=== PATIENT | female | born 1965 | race Caucasian/White ===

== ENCOUNTER → 2020-04-13 | Outpatient (CLI) | payer OTHER ==
--- NOTE | 2020-04-13 16:37 | RAD ---
EXAM: Chest ultrasound. HISTORY: Palpable mass right chest wall. COMPARISON: None. FINDINGS: Sonographic evaluation of the site of palpable concern was performed. This reveals a fat ec hogenicity mass within the subcutaneous compartment along the right upper anterior chest. It measures 2.1 x 3.9 x 1.0 cm. It appears circumscribed and there is no involvement of deeper compartments. Superior to the region of concern, a reniform nodule deep to the pectoralis muscle measures 9 x 5 mm and suggests a benign supraclavicular lymph node. IMPRESSION: 1. Findings consistent with a 3.9 x 2.1 cm subcutaneous lipoma at the site of concern. Recommend ongo ing clinical follow-up of palpable foci to ensure stability. If this is not clinically consistent wit h a lipoma, MRI with and without contrast could further evaluate. 2. A 9 x 5 mm supraclavicular lymph node without thin cortex and prominent fatty hilus is most likely benign, but correlate with other clinical data. Electronically signed by: Namrata Foote MD (04/13/2020 4:34 PM) [id number]
--- NOTE | 2020-04-13 17:46 | RAD ---
DATE: 04/13/2020 2:26 PM EXAM: MAMMO DEBORAH DIAG BILAT HISTORY: Patient is due for screening but has a chest wall mass. COMPARISON: Right chest wall ultrasound same day Bilateral CC and MLO views of the breasts were performed. Bilateral breast tomosynthesis was performed in CC and MLO projections. Implant displaced views were also obtained This study was interpreted with the benefit of Computerized Aided Detection (CAD). FINDINGS: Breast Density: SCATTERED The breast parenchyma shows scattered fibroglandular densities. Breast parenchyma level B The chest wall mass of clinical concern is beyond the field of view within the breast and is evaluated separately by ultrasound on the same day visit. Please see that report for additional details. Bilateral subpectoral implants are present. No suspicious masses, microcalcifications or architectural distortion is present to suggest malignancy in either breast. The visualized axillae are unremarkable. IMPRESSION: No mammographic evidence of malignancy. BI-RADS CATEGORY: 1 NEGATIVE RECOMMENDED FOLLOW-UP: 12M 12 MONTH FOLLOW-UP Annual screening mammography is recommended, unless clinically indicated sooner based on symptoms or change in physical exam. PQRS compliance statement: Patient information was entered into a reminder system with a target due date for the next mammogram. Mammography is a sensitive method for finding small breast cancers, but it does not detect them all and is not a substitute for careful clinical examination. A negative mammogram does not negate a clinically suspicious finding and should not result in delay in biopsying a clinically suspicious abnormality. "Our facility is accredited by the [employer] Mammography Program."
== END ==
LOC: MAMMO 13:07
PROVIDERS: ATTEND Obstetrics & Gynecology
DX: Z01.419 Encounter for gynecological examination (general) (routine) without abnormal findings (principal); N63.10 Unspecified lump in the right breast, unspecified quadrant
CPT/HCPCS: 76604; 77066; G0279; 77062

== ENCOUNTER → 2020-06-18 | Outpatient (CLI) | payer OTHER ==
[2020-06-18 18:05] LABS: BASO # 0.1 x10^3/uL (0.0-0.2); BASO % 1 % (0-3); EOS # 0.1 x10^3/uL (0.0-0.7); EOS % 1 % (0-3); HEMATOCRIT 29.3 % (36.0-47.0); HEMOGLOBIN 9.5 g/dL (12.0-15.5); LYMPH # 1.8 x10^3/uL (1.0-4.8); LYMPH % 14 % (24-48); MEAN CORPUSCULAR HEMOGLOBIN 29 pg (25-35); MEAN CORPUSCULAR HGB CONC 32 g/dL (31-37); MEAN CORPUSCULAR VOLUME 89 fL (79-100); MONO # 0.7 x10^3/uL (0.0-1.1); MONO % 5 % (0-9); NEUT # 10.1 x10^3uL (1.8-7.7); NEUT % 79 % (31-73); PLATELET COUNT 656 x10^3/uL (140-400); RED CELL DISTRIBUTION WIDTH 15.7 % (11.5-14.5); WHITE BLOOD COUNT 12.9 x10^3/uL (4.0-11.0)
[2020-06-18 18:13] LABS: ALBUMIN 2.4 g/dL (3.4-5.0); ALBUMIN/GLOBULIN RATIO 0.5 (1.0-1.7); C REACTIVE PROTEIN 23.2 mg/L (0-3.3); CALCIUM 8.6 mg/dL (8.5-10.1); CREATININE 0.7 mg/dL (0.6-1.0); GFR 87.5; POTASSIUM 3.9 mmol/L (3.5-5.1); TOTAL BILIRUBIN 0.1 mg/dL (0.2-1.0); TOTAL PROTEIN 7.6 g/dL (6.4-8.2)
--- NOTE | 2020-06-18 18:40 | RAD ---
EXAM: Left lower extremity venous Doppler. HISTORY: Left lower extremity pain/swelling. COMPARISON: None. FINDINGS: Grayscale and Doppler analysis of the left lower extremity deep venous system was performed with graded compression and augmentation. The common femoral, greater saphenous, superficial femoral , popliteal and calf veins were assessed. There is no evidence of deep venous thrombosis. Left inguinal lymph nodes measure up to 2.3 x 1.0 cm. Subcutaneous edema is noted along the distal leg. IMPRESSION: 1. No evidence of deep venous thrombosis. 2. Prominent left inguinal lymph nodes. Correlate for lower extremity inflammation. Electronically signed by: Namrata Foote MD (06/18/2020 6:37 PM) [email or web address]
[2020-06-18 19:22] LABS: SEDIMENTATION RATE 130 (0-25)
== END ==
LOC: US 17:05
PROVIDERS: ATTEND Nurse Practitioner Adult Health
DX: L03.116 Cellulitis of left lower limb (principal); R22.42 Localized swelling, mass and lump, left lower limb
CPT/HCPCS: 36415; 80053; 85025; 85651; 86140; 93971